=== PATIENT | male | born 1935 | race Two or more races ===

== ENCOUNTER 2017-12-12 14:20 | Outpatient (CLI) | payer MEDICARE, BC | END 2017-12-12 23:59 | disposition home health service (06) | LOC: WOU 14:20 | PROVIDERS: ATTEND Surgery | DX: S51.812A Laceration without foreign body of left forearm, initial encounter (principal); S51.012A Laceration without foreign body of left elbow, initial encounter; S61.412A Laceration without foreign body of left hand, initial encounter; X58.XXXA Exposure to other specified factors, initial encounter; Y92.89 Other specified places as the place of occurrence of the external cause; R26.2 Difficulty in walking, not elsewhere classified; C02.9 Malignant neoplasm of tongue, unspecified; Z96.643 Presence of artificial hip joint, bilateral | CPT/HCPCS: A6402; G0463; Z7610 ==